=== PATIENT | female | born 1985 | race African-American/Black ===

== ENCOUNTER 2022-04-17 18:26 | Emergency (ER) | payer BC, SELFPAY ==
--- NOTE | ~2022-04-17 | XR_ITS ---
EXAMINATION: XR chest 2V Exam Date/Time: 04/17/2022 18:50 [employer] TRIMMER HISTORY: cp TO UPPER LEFT SIDE CHEST FOR 1 DAY Comparison: None available. RESULT: Lines, tubes, and devices: None. Lungs and pleura: Clear. Cardiomediastinal silhouette: Normal. Other: No acute osseous or upper abdominal finding. IMPRESSION: No acute cardiopulmonary process. Reviewed, dictated and finalized at location K. T TRIMMER
[2022-04-17 18:30] VITALS: BP 129/79; PULSE 74; RESP 16; TEMP 36.9; O2SAT 99
--- NOTE | 2022-04-17 18:32 | ECG_ITS ---
Measurements Intervals [place] Rate: 67 P: 24 TX: 172 QRS: 10 QRSD: 86 T: 23 QT: 388 QTc: 411 Interpretive Statements SINUS RHYTHM WITH SINUS ARRHYTHMIA BORDERLINE ECG NO PREVIOUS ECG AVAILABLE FOR COMPARISON Electronically Signed On 04-18-2022 13:32:50 [employer] by Darren Miller M.D.
[2022-04-17 18:40] VITALS: PULSE 72
[2022-04-17 18:45] LABS: Basophils Absolute Auto 0.1 K/mm3 (0.0-0.1); Basophils Percent Auto 0.6 % (0.2-1.2); Eosinophils Absolute Auto 0.1 K/mm3 (0-0.3); Eosinophils Percent Auto 1.1 % (0-4.4); Hematocrit 43.5 % (37.0-47.0); Hemoglobin 13.6 g/dL (12.0-15.0); Immature Granulocyte Absolute 0.02 K/mm3 (0.00-0.031); Immature Granulocyte Percent A 0.3 % (0-0.5); Lymphocytes Absolute Auto 3.22 K/mm3 (0.9-3.2); Mean Corpuscular HGB Conc 31.3 g/dl (32-36); Mean Corpuscular Hemoglobin 28.8 pg (26-34); Mean Platelet Volume 9.3 fl (7.4-10.4); Monocytes Absolute Auto 0.7 K/mm3 (0.1-0.6); Monocytes Percent Auto 8.8 % (2.6-8.5); Neutrophils Absolute Auto 3.8 K/mm3 (1.3-6.7); Neutrophils Percent Auto 48.2 % (45.5-73.1); Platelet Count Result 276 k/mm3 (150-375); Red Blood Count 4.73 M/mm3 (4.2-5.4); Red Cell Distribution Width 12.7 % (11.5-14.5); White Blood Count 7.9 K/mm3 (4.5-10.0)
--- NOTE | 2022-04-17 18:49 | ED.CHESTPAIN ---
HPI - Chest Pain General Chief Complaint: Chest Pain Stated Complaint: left sided chest pain Time Seen by Provider: 04/17/22 18:27 History of Present Illness HPI narrative: 36-year-old female presented the emergency department for evaluation of left-sided chest pain. Patient states she began having the chest pain today at 11 AM and has persisted. Patient states the pain is her left-sided chest that radiates into her left shoulder blade. Patient reports a few days ago she did have some cough and congestion. Patient also recently had her COVID booster. Patient denies any history of hypertension, high cholesterol diabetes. Patient denies any prior cardiac history. Patient denies any prior history of pulmonary embolism or DVT. Patient does take control. Related Data Allergies Allergy/AdvReac Type Severity Reaction Status Date / Time Penicillins Allergy Rash Verified 04/17/22 18:29 Review of Systems Review of Systems: CONSTITUTIONAL: Denies fever, chills, or sweats. EYES: Denies visual changes, redness, or discharge. ENT: Denies rhinorrhea, congestion, sore throat, or otalgia. CARDIOVASCULAR: See HPI RESPIRATORY: Denies cough or dyspnea. GASTROINTESTINAL: Denies abdominal pain, nausea, vomiting, or diarrhea. GENITOURINARY: Denies dysuria or hematuria. SKIN: Denies rash or itching. MUSCULOSKELETAL: Denies back pain, joint pain, or myalgia. NEUROLOGIC: Denies headache, numbness, or weakness. Exam Narrative: APPEARANCE: Well appearing, no pain, no distress, well-nourished. HEAD: normocephalic, atraumatic. EYES: PERRLA/EOMI, conjunctivae clear. NOSE: Normal no drainage EARS:TMS clear with good light reflex. THROAT: Pharynx clear, no exudate. NECK: Supple. No adenopathy, no masses. RESPIRATORY: Airway patent, respirations nonlabored. Clear to auscultation bilaterally, no rales, rhonchi, wheezing. CARDIOVASCULAR: Reproducible left-sided chest wall tenderness to palpation. ABDOMINAL: Soft, nontender, nondistended, normal bowel sounds MUSCULOSKELETAL: Moves all extremities. Strength/ROM intact, No edema, No calf tenderness. NEURO: Alert. Cranial nerves II through XII intact. Grossly intact SKIN: Warm, dry. Normal Color Course Course Emergency Course: Patient's D-dimer was within normal limits. Patient was not tachycardic nor hypoxic. Patient's troponin was negative. Patient's pain has been constant for approximately 10 hours. Patient was comfortable with the plan for discharge and close follow-up. Vital Signs Vital signs: Vital Signs Temperature 98.4 F 04/17/22 18:30 Pulse Rate 74 04/17/22 18:30 Respiratory Rate 16 04/17/22 18:30 Blood Pressure 129/79 04/17/22 18:30 Pulse Oximetry 99 04/17/22 18:30 Temperature 98.4 F 04/17/22 18:30 Pulse Rate 70 04/17/22 20:41 Respiratory Rate 22 H 04/17/22 20:41 Blood Pressure 124/71 04/17/22 19:16 Pulse Oximetry 100 04/17/22 20:41 MDM - Chest Pain Lab Data Attestation: I reviewed the patient's lab results. 04/17/22 18:40 04/17/22 18:40 Labs: Lab Results 04/17/22 04/17/22 04/17/22 Range/Units 18:40 18:40 18:40 WBC 7.9 (4.5-10.0) K/mm3 RBC 4.73 (4.2-5.4) M/mm3 Hgb 13.6 (12.0-15.0) g/dL Hct 43.5 (37.0-47.0) % MCV 92.0 (80-100) fl MCH 28.8 (26-34) pg MCHC 31.3 L (32-36) g/dl RDW 12.7 (11.5-14.5) % Plt Count 276 (150-375) k/mm3 MPV 9.3 (7.4-10.4) fl Immature Gran % (Auto) 0.3 (0-0.5) % Neut % (Auto) 48.2 (45.5-73.1) % Lymph % (Auto) 41.0 (18.3-44.2) % [place] % (Auto) 8.8 H (2.6-8.5) % Eos % (Auto) 1.1 (0-4.4) % Baso % (Auto) 0.6 (0.2-1.2) % Lymph # (Auto) 3.22 H (0.9-3.2) K/mm3 [place] # (Auto) 0.7 H (0.1-0.6) K/mm3 Eos # (Auto) 0.1 (0-0.3) K/mm3 Baso # (Auto) 0.1 (0.0-0.1) K/mm3 Abs Immat Gran (auto) 0.02 (0.00-0.031) K/mm3 Absolute Neuts (auto) 3.8 (1.3-6.7) K/mm3 Absolute Nucleated RBC 0.0
[2022-04-17 18:57] LABS: Alanine Aminotransferase 26 U/L (6-35); Albumin Level 3.7 g/dL (3.5-5.1); Alkaline Phosphatase 130 U/L (38-126); Anion Gap 7 mmol/L (8-16); Aspartate Amino Transferase 24 U/L (14-36); Bilirubin,Total 0.4 mg/dL (0.2-1.3); Blood Urea Nitrogen 11 mg/dL (7-17); Calcium 8.4 mg/dL (8.4-10.2); Carbon Dioxide 24 mmol/L (22-30); Chloride 109 mmol/L (98-107); Estimated CRCL calculation 118 ml/min; Estimated Glomerular Filt Rate > 60; Glucose 88 mg/dL (65-110); Lipase 38 U/L (23-300); Potassium 3.8 mmol/L (3.4-5.0); Sodium 140 mmol/L (137-145)
[2022-04-17 18:59] LABS: INR 1.1; Prothrombin Time 13.4 Seconds (11.1-14.7)
[2022-04-17 19:00] LABS: Partial Thromboplastin Time 30.9 SECONDS (22.3-36.8)
[2022-04-17 19:07] LABS: Troponin I < 0.012 ng/mL (0.000-0.034)
[2022-04-17 19:16] VITALS: BP 124/71; PULSE 69; RESP 19; O2SAT 100
--- NOTE | 2022-04-17 19:17 | PC.NURSE ---
ASsumed care of pt at this time.
[2022-04-17 19:32] LABS: D Dimer 0.33 ug/mL (<0.48)
[2022-04-17 19:50] LABS: Influenza A QL RT-PCR Negative (Negative); Influenza B QL RT-PCR Negative (Negative); SARS-CoV-2 RNA PCR Negative
[2022-04-17 20:41] VITALS: PULSE 70; RESP 22; O2SAT 100
[2022-04-17] MEDS: KETOROLAC 15 MG/ML VIAL (*BKC) IV PUSH (20:56)
== END 2022-04-17 22:10 | disposition home or self-care (01) ==
PROVIDERS: Emergency Provider Emergency Medicine
DX: R09.1 Pleurisy (principal); Z20.822 Contact with and (suspected) exposure to COVID-19
CPT/HCPCS: 36415; 71046; 80053; 83690; 84484; 85025; 85380; 85610; 85730; 87636; 93005; 96374; 99284; J1885